=== PATIENT | male | born 1995 | race Two or more races ===

== ENCOUNTER 2019-09-17 16:19 | Emergency (ER) | payer OTHER ==
--- NOTE | 2019-09-18 14:52 | EKG ---
Test Reason : Blood Pressure : / mmHG Vent. Rate : 079 BPM Atrial Rate : 079 BPM P-R Int : 134 ms QRS Dur : 100 ms QT Int : 366 ms P-R-T Axes : 035 079 043 degrees QTc Int : 419 ms Normal sinus rhythm with sinus arrhythmia Normal ECG Confirmed by ANTONIA TOWNSEND, EILEEN ([id number]), video effects editor FRANK GARNETT ([id number]) on 09/18/2019 2:51:56 PM Referred By: Confirmed By:EILEEN KNIGHT MD
== END 2019-09-17 17:12 ==
LOC: ERS 16:19
DX: R47.9 Unspecified speech disturbances (principal); M79.673 Pain in unspecified foot
CPT/HCPCS: 93005